=== PATIENT | male | born 1955 | race Caucasian/White ===

== ENCOUNTER 2018-11-13 08:34 | Day surgery (SDC) | payer OTHER, SELFPAY ==
--- NOTE | 2018-11-12 18:09 | W.PIPPEYE ---
History of Present Illness Chief Complaint: Progressive decreased vision, left eye Narrative: The patient is a 63-year old male with history of progressive decreased vision no both eyes at both distance and near. He is particularly difficult when driving and reading. On examination he was noted to have significant brunescent cataracts OU with visual acuity of 20/50 OD and 20/80 OS. The option of cataract surgery was offered to the patient and he felt he was symptomatic enough that he wished to proceed. NOTE: The Chief Complaint, HPI, Past Medical History, Past Surgical History, Family History, Social History, Medications, and complete Ophthalmic Exam with detailed Assessment and Plan have already been documented in the patient's outpatient ophthalmic record and are not covered again in detail here. [facility] Medical History Nuclear sclerotic cataract of left eye (Acute) Social History Smoking and Tabacco status: Current every day Meds Home Medications Medication Instructions Recorded Confirmed Type acetaminophen [Tylenol Extra 1,000 mg PO DAILY 11/08/18 11/08/18 History Strength] apixaban [Eliquis] 5 mg PO BID 11/08/18 11/08/18 History calcium carbonate [Calcium 500] 1,000 mg PO DAILY 11/08/18 11/08/18 History calcium crb,jei-H4-[id number]-genis 1 tab PO DAILY 11/08/18 11/08/18 History [Citracal + Bone Density] cholecalciferol (vitamin D3) 1,000 unit PO DAILY 11/08/18 11/08/18 History [Vitamin D3] digoxin [Digox] 0.25 mg PO DAILY 11/08/18 11/08/18 History diltiazem HCl [Cartia XT] 120 mg PO DAILY 11/08/18 11/08/18 History folic acid 1 mg PO DAILY 11/08/18 11/08/18 History loperamide 2 mg PO Q1-4H PRN 11/08/18 11/08/18 History metoprolol succinate 100 mg PO DAILY 11/08/18 11/08/18 History qerfiiiw-fka-xdkjj-vit K-lycop 1 ea PO DAILY 11/08/18 11/08/18 History [Men's Multivitamin] sertraline 1 tab PO DAILY 11/08/18 11/08/18 History thiamine HCl (vitamin B1) 100 mg PO DAILY 11/08/18 11/08/18 History Allergies Allergy/AdvReac Type Severity Reaction Status Date / Time No Known Allergies Allergy Unverified 11/08/18 13:02 Exam OCULAR EXAM:: Most recent ocular examination is significant for corrected visual acuity of 20/50 OD, 20/80 OS. Extraocular motility is normal. Pupils equal, round, and reactive without afferent pupillary defect slit-lamp examination is significant for pupils dilating to 7 mm OU. 3+ brunescent nuclear cataracts OU. Dilated funduscopic examination shows disc cupping of 0.6 OD 0.4 OS with normal vessels, macula, peripheral retina and vitreous. BRIGHTNESS ACUITY TESTING (BAT):: Brightness acuity testing of the left eye off is 20/60. Low is 20/60. Medium is 20/80. High is 20/100. Assessment and Plan (1) Nuclear sclerotic cataract of left eye: Current visit: No Status: Acute Assessment: Visually significant cataract, left eye. Plan: Cataract extraction with intraocular lens implantation, left eye Note: NOTE:: The details of the planned surgery, including the risks, indications,limitations,expectations,outcome and possible complications were explained to the patient. The patient understands the complications including, but not limited to: infection, hemorrhage, posterior dislocation of the lens or nuclear fragments which may require the intervention of a vitreoretinal surgeon, possible loss of the eye, or from anesthetic complications. The patient has been made aware of the option of not having surgery, that vision following surgery may not be equal to that prior to surgery, and that the planned surgery may not achieve the intended results. Following this discussion, which the patient appeared to understand, the patient wishes to proceed with cataract surgery with lens implantation of the affected eye to improve and maximize vision.
--- NOTE | 2018-11-12 18:20 | PDOC.DSDIS_ITS ---
Discharge Plan Discharge Details Attending Provider: Ata Munoz Primary Care Provider: Mohit Acosta [place] Meds and New Rx's Prescriptions: No Action loperamide 2 mg Capsule 2 mg PO Q1-4H PRNRF: 0 digoxin [Digox] 250 mcg Tablet 0.25 mg PO DAILY RF: 0 calcium carbonate [Calcium 500] 500 mg calcium (1,250 mg) Tablet 1,000 mg PO DAILY RF: 0 diltiazem HCl [Cartia XT] 120 mg Capsule,Extended Release 24hr 120 mg PO DAILY RF: 0 folic acid 1 mg Tablet 1 mg PO DAILY RF: 0 Citracal + Bone Density 300-200-13.5 mg-unit-mg Tablet 1 tab PO DAILY RF: 0 Eliquis 5 mg Tablet 5 mg PO BID RF: 0 metoprolol succinate 100 mg Cap,Sprinkle,Er 24hr Dose Pack 100 mg PO DAILY RF: 0 sertraline 100 mg Tablet 1 tab PO DAILY RF: 0 thiamine HCl (vitamin B1) 100 mg Tablet 100 mg PO DAILY RF: 0 acetaminophen [Tylenol Extra Strength] 500 mg Tablet 1,000 mg PO DAILY RF: 0 cholecalciferol (vitamin D3) [Vitamin D3] 1,000 unit Tablet 1,000 unit PO DAILY RF: 0 Men's Multivitamin 400-20-300 mcg Tablet 1 ea PO DAILY RF: 0 Discharge Instructions Stand Alone Forms: Post-op Topical Cataract, Mirta Payne (DSU) DS: Diagnosis Discharge Diagnosis (1) Status post cataract extraction and insertion of intraocular lens of left eye: Status: Chronic
--- NOTE | 2018-11-12 18:20 | W.PM.OP ---
Date of service: 11/13/18 Operative Note PRE-OP DIAGNOSIS: Cataract, left eye POST-OP DIAGNOSIS: same PROCEDURE: Cataract extraction using phacoemulsification with intraocular lens implant, left eye SURGEON: Ata Munoz ANESTHESIA: MAC and local (sub-tenon's anesthetic infiltration) PATHOLOGY: none sent COMPLICATIONS: None Patient was transported to: same day Patient's condition: stable Implants: Nelson and Nelson Vision / [employer] Tecnis [id number] Indications: Progressive decreased vision due to cataract, left eye Procedure Description: CATARACT SURGERY OPERATIVE REPORT PREOPERATIVE DIAGNOSIS: [] POSTOPERATIVE DIAGNOSIS: Same OPERATION: Cataract extraction using phacoemulsification with posterior chamber intraocular lens implant, left eye. IOL: IOL Edge Blacker/Model: J&J Vision / AVRIL Tecnis [id number] IOL Power: +[] diopters IOL Serial Number: [] Optic Diameter: 6.0mm Haptic/Overall Diameter: 13.0mm PHACO INFO: Perez [employer]urion Vision System with OZil and Active Fluidics Cumulative Dispersed Energy (CDE): [] seconds SURGEON: Ata Munoz MD, SOLO ANESTHESIA: Monitored Anesthesia Care (MAC), with local sub-tenon's anesthetic infiltration COMPLICATIONS: None SPECIMENS: None INDICATIONS FOR PROCEDURE: [] PROCEDURE: The correct surgical eye was identified and marked as the left eye and the pupil was dilated in the preoperative area using mydriatics and cycloplegics. The dilated pupil size was [] mm. Oral sedation was administered in the form of an Imprimis MKO Melt (midazolam 3mg/ketamine 25mg/ondansetron 2mg). The patient was brought to the operating room where cardiopulmonary monitoring was instituted and surgical time-out was performed, confirming the correct operative eye and IOL power. Topical anesthesia was administered and ophthalmic povidone-iodine 5% was instilled into the conjunctival fornices. Lidocaine gel was applied to the cornea and the sulema-ocular area was prepped with Betadine 10% solution and draped in the usual sterile fashion for intraocular surgery, including an aperture drape. A Tegaderm transparent film dressing was cut in half and used to cover the lashes and lid margins. Care was taken to sequester the lashes and lid margins under the Tegaderm dressing. A lid speculum was placed between the lids of the operative eye and the [employer] operating microscope was maneuvered into position. Reyes scissors were then used to make a conjunctival buttonhole approximately 6mm posterior to the limbus in the inferonasal quadrant. Blunt dissection was carried out to expose bare sclera, and a blunt-tipped sub-tenon?s anesthesia cannula was introduced and passed posteriorly along the globe where non-preserved plain lidocaine was injected into posterior sub-Tenon?s space. A sideport knife was used to make a paracentesis port superior/superiortemporal, and the anterior chamber was filled with Healon GV. A 2.4mm keratome knife was used to create a half-thickness groove at the limbus and then to construct a three-plane near-clear corneal tunnel extending 2.0mm into clear cornea in the temporal position. . A flap was raised on the anterior capsule and capsulorhexis forceps were used to complete a continuous curvilinear capsulorhexis of []mm. Balanced salt solution was then used to perform cortical cleaving hydrodissection and nuclear hydrodelineation until the lens could be freely rotated within the capsular bag. The lens nucleus was then disassembled and removed within the capsular bag and iris plane using phacoemulsification. Residual cortical material was removed using the 45-degree angled silicone I/A tip with 0.3mm port. The posterior capsule was carefully polished to remove as much residual lens epithelial cells as safely possible. The capsular bag was then inflated and the anterior chamber deepened with viscoelastic. The lens implant described above was inserted into the capsular bag using the AVRIL [place] Injector. A Kuglen hook was used to dial the IOL into position. Residual viscoelastic was then removed first from posterior to the IOL, then from the anterior chamber using the I/A handpiece. The lens implant was noted to center nicely within the capsular bag. The incisions were stromally hydrated, and the anterior chamber was reformed using BSS. Then 0.4cc of moxifloxacin 1.5mg/ml were injected into the capsular bag and anterior chamber. The incisions were checked with a Weck spear and found to be secure. Several drops of ophthalmic povidone-iodine 5% were then applied to the eye followed by two drops of Imprimis combination moxifloxacin/dexamethasone solution. The drapes were removed and a clear plastic protective eye shield was placed over the eye. The patient was then returned to Same Day Surgery in stable condition.
[2018-11-13 08:50] VITALS: BP 144/90; PULSE 78; RESP 16; TEMP 35.5; O2SAT 94
[2018-11-13] MEDS: Tropicam./Phenyleph. (1/2.5%) 5 ML BTL OS ×3 (09:12→09:20)
[2018-11-13] MEDS: Tetracaine 0.5% 4 ML BTL OS ×4 (09:12→11:11)
[2018-11-13] MEDS: Balanced Salt Soln.-PLUS 500 ML BAG (11:12)
[2018-11-13] MEDS: Trypan Blue 0.06% 0.5 ML SYR (11:12)
[2018-11-13] MEDS: Povidone-Iodine Ophth 30 ML BTL ×2 (11:12→11:51)
[2018-11-13] MEDS: Lidocaine 2% Jelly 6 ML SYR (11:12)
[2018-11-13] MEDS: Lidocaine 1% Pres-Free 5 ML VIAL (11:12)
--- NOTE | 2018-11-13 12:01 | W.PM.OP ---
Date of service: 11/13/18 Time of Service: 12:01 Operative Note PRE-OP DIAGNOSIS: Cataract, left eye, with poor red reflex POST-OP DIAGNOSIS: same PROCEDURE: Cataract extraction using phacoemulsification with intraocular lens implant, left eye, using capsular staining with Vision Blue SURGEON: Ata Munoz ANESTHESIA: MAC (with local sub-tenon's anesthetic injection) COMPLICATIONS: None Patient was transported to: same day Patient's condition: stable Implants: Nelson and Nelson / [employer] Opt[employer] Tecnis [id number] Indications: Progressive decreased vision due to cataract, left eye, with poor red reflex Procedure Description: CATARACT SURGERY OPERATIVE REPORT PREOPERATIVE DIAGNOSIS: 1. Dense nuclear cataract, left eye 2. Poor red reflex secondary to #1 POSTOPERATIVE DIAGNOSIS: Same OPERATION: 1. Cataract extraction using phacoemulsification with posterior chamber intraocular lens implant, left eye. 2. Capsular staining with Vision Blue IOL: IOL Distribution [employer] Assistant/Model: Nelson & Nelson / AVRIL Tecnis [id number] IOL Power: + 17.50 diopters IOL Serial Number: [id number] Optic Diameter: 6.0 mm Haptic/Overall Diameter: 13.0 mm PHACO INFO: Perez [employer]urion Vision System with OZil and Active Fluidics Cumulative Dispersed Energy (CDE): 33.46 seconds SURGEON: Ata Munoz MD, SOLO ANESTHESIA: Monitored A [facility] Care (MAC), with local sub-tenon's anesthetic infiltration COMPLICATIONS: None SPECIMENS: None INDICATIONS FOR PROCEDURE: The patient is a 63-year old male with history of diminished visual acuity and both eyes secondary to dense bilateral nuclear cataract left eye greater than right. The option of cataract surgery was offered to the patient and he felt he was symptomatically asked that he wished to proceed. PROCEDURE: The correct surgical eye was identified and marked as the left eye and the pupil was dilated in the preoperative area using mydriatics and cycloplegics. The dilated pupil size was 7.0 mm. Oral sedation was administered in the form of an Imprimis MKO Melt (midazolam 3mg/ketamine 25mg/ondansetron 2mg). The patient was brought to the operating room where cardiopulmonary monitoring was instituted and surgical time-out was performed, confirming the correct operative eye and IOL power. Topical anesthesia was administered and ophthalmic povidone-iodine 5% was instilled into the conjunctival fornices. Lidocaine gel was applied to the cornea and the sulema-ocular area was prepped with Betadine 10% solution and draped in the usual sterile fashion for intraocular surgery, including an aperture drape. A Tegaderm transparent film dressing was cut in half and used to cover the lashes and lid margins. Care was taken to sequester the lashes and lid margins under the Tegaderm dressing. A lid speculum was placed between the lids of the operative eye and the Syk-Regina operating microscope was maneuvered into position. The red reflex was noted to be extremely poor/absent. Some corneal haze was noted as well. Reyes scissors were then used to make a conjunctival buttonhole approximately 6mm posterior to the limbus in the inferonasal quadrant. Blunt dissection was carried out to expose bare sclera, and a blunt-tipped sub-tenon?s anesthesia cannula was introduced and passed posteriorly along the globe where non-preserved plain lidocaine was injected into posterior sub-Tenon?s space. A sideport knife was used to make a paracentesis port at the 12:00 position. Air was injected into the anterior chamber, followed by Vision Blue, which was painted over the anterior capsule and then irrigated out using BSS. The anterior chamber was filled with Healon GV. A 2.4mm keratome knife was used to create a half-thickness groove at the limbus and then to construct a three-plane near-clear corneal tunnel extending 2.0mm into clear cornea at the 3:00 position. A flap was raised on the anterior capsule and capsulorhexis forceps were used to complete a continuous curvilinear capsulorhexis of 5.0 mm. Balanced salt solution was then used to perform cortical cleaving hydrodissection and nuclear hydrodelineation until the lens could be freely rotated within the capsular bag. The lens nucleus was then disassembled and removed within the capsular bag and iris plane using phacoemulsification. Residual cortical material was removed using the Perez transformer irrigation and aspiration instrument.. The posterior capsule was carefully polished to remove as much residual lens epithelial cells as safely possible. The capsular bag was then inflated and the anterior chamber deepened with viscoelastic. The lens implant described above was inserted into the capsular bag using the AVRIL [place] Injector. A Kuglen hook was used to dial the IOL into position. Residual viscoelastic was then removed first from posterior to the IOL, then from the anterior chamber using the I/A handpiece. The lens implant was noted to center nicely within the capsular bag. The incisions were stromally hydrated, and the anterior chamber was reformed using BSS. Then 0.4cc of moxifloxacin 1.5mg/ml were injected into the capsular bag and anterior chamber. The incisions were checked with a Weck spear and found to be secure. Several drops of ophthalmic povidone-iodine 5% were then applied to the eye followed by two drops of Imprimis combination moxifloxacin/dexamethasone solution. The drapes were removed and a clear plastic protective eye shield was placed over the eye. The patient was then returned to Same Day Surgery in stable condition.
[2018-11-13 12:19] VITALS: BP 117/76; PULSE 64; RESP 16; TEMP 35.8; O2SAT 98
== END 2018-11-13 12:33 | disposition home or self-care (01) ==
LOC: SUR 08:36
PROVIDERS: PCP Neuromusculoskeletal Medicine & OMM; Visit Provider Ophthalmology
PROC: (CPT 66982; principal; 2018-11-13 11:30)
DX: H25.12 Age-related nuclear cataract, left eye (principal); K21.9 Gastro-esophageal reflux disease without esophagitis; F17.210 Nicotine dependence, cigarettes, uncomplicated
CPT/HCPCS: 66982; V2632

== ENCOUNTER 2018-11-27 08:17 | Day surgery (SDC) | payer OTHER, SELFPAY ==
--- NOTE | 2018-11-26 16:53 | POEE_ITS ---
History of Present Illness Chief Complaint: Progressive decreased vision, right eye Narrative: The patient is a 63-year-old male with history of progressive decreased vision in both eyes. He was noted to have significant bilateral nuclear cataracts. Cataract surgery in the left eye on 11/13/2018 and postoperatively has regained best corrected vision of 20/25 in the left eye. He now presents for cataract surgery in the right eye where best corrected vision measures 20/50. NOTE: The Chief Complaint, HPI, Past Medical History, Past Surgical History, Family History, Social History, Medications, and complete Ophthalmic Exam with detailed Assessment and Plan [facility] and are not covered again in detail here. [facility] Medical History Nuclear sclerotic cataract of right eye (Acute) Nuclear sclerotic cataract of left eye (Resolved) Surgical History Status post cataract extraction and insertion of intraocular lens of left eye (Chronic 11/13/18) Social History Smoking and Tabacco status: Current every day Meds Home Medications Medication Instructions Recorded Confirmed Type acetaminophen [Tylenol Extra 1,000 mg PO DAILY 11/08/18 11/13/18 History Strength] apixaban [Eliquis] 5 mg PO BID 11/08/18 11/13/18 History calcium carbonate [Calcium 500] 1,000 mg PO DAILY 11/08/18 11/13/18 History calcium crb,jfa-N0-iyo66-genis 1 tab PO DAILY 11/08/18 11/13/18 History [Citracal + Bone Density] cholecalciferol (vitamin D3) 1,000 unit PO DAILY 11/08/18 11/13/18 History [Vitamin D3] digoxin [Digox] 0.25 mg PO DAILY 11/08/18 11/13/18 History diltiazem HCl [Cartia XT] 120 mg PO DAILY 11/08/18 11/13/18 History folic acid 1 mg PO DAILY 11/08/18 11/13/18 History loperamide 2 mg PO Q1-4H PRN 11/08/18 11/13/18 History metoprolol succinate 100 mg PO DAILY 11/08/18 11/13/18 History wdoblaxf-qph-bekok-vit K-lycop 1 ea PO DAILY 11/08/18 11/13/18 History [Men's Multivitamin] sertraline 1 tab PO DAILY 11/08/18 11/13/18 History thiamine HCl (vitamin B1) 100 mg PO DAILY 11/08/18 11/13/18 History Allergies Allergy/AdvReac Type Severity Reaction Status Date / Time No Known Allergies Allergy Unverified 11/13/18 08:42 Exam OCULAR EXAM:: Most recent ocular examination is significant for best corrected vision of 20/50 OD, 20/25 OS. Extraocular motility is normal. Pupils equal, round, and reactive without afferent pupillary defect slit-lamp examination is significant for pupils dilating to 7 mm OU. 3+ brunescent nuclear cataracts OU. Well-positioned PCIOL OS with some mild central Descemet's folds in the cornea. Dilated funduscopic examination shows disc cupping of 0.6 OD 0.4 OS with good color. The optic nerves have good perfusion and normal color. The retinal vasculature is normal without significant tortuosity or abnormality. The maculas are normal in appearance with normal contour and foveal reflex appropriate for age. The peripheral retina and vitreous are normal. BRIGHTNESS ACUITY TESTING (BAT):: Brightness acuity testing of the right eye off is 20/50. Low is 20/60. Medium is 20/50. High is 20/60. Assessment and Plan (1) Nuclear sclerotic cataract of right eye: Current visit: No Status: Acute Assessment: Visually significant cataract, right eye. Plan: Cataract extraction with intraocular lens implantation, right eye Note: NOTE:: The details of the planned surgery, including the risks, indications,limitations,expectations,outcome and possible complications were explained to the patient. The patient understands the complications including, but not limited to: infection, hemorrhage, posterior dislocation of the lens or nuclear fragments which may require the intervention of a vitreoretinal surgeon, possible loss of the eye, or from anesthetic complications. The patient has been made aware of the option of not having surgery, that vision following surgery may not be equal to that prior to surgery, and that the planned surgery may not achieve the intended results. Following this discussion, which the patient appeared to understand, the patient wishes to proceed with cataract surgery with lens implantation of the affected eye to improve and maximize vision.
--- NOTE | 2018-11-26 17:25 | W.PM.DSUDISC ---
Discharge Plan Discharge Details Attending Provider: Ata Munoz Primary Care Provider: Mohit Acosta [place] Meds and New Rx's Prescriptions: No Action loperamide 2 mg Capsule 2 mg PO Q1-4H PRNRF: 0 digoxin [Digox] 250 mcg Tablet 0.25 mg PO DAILY RF: 0 calcium carbonate [Calcium 500] 500 mg calcium (1,250 mg) Tablet 1,000 mg PO DAILY RF: 0 diltiazem HCl [Cartia XT] 120 mg Capsule,Extended Release 24hr 120 mg PO DAILY RF: 0 folic acid 1 mg Tablet 1 mg PO DAILY RF: 0 Citracal + Bone Density 300-200-13.5 mg-unit-mg Tablet 1 tab PO DAILY RF: 0 Eliquis 5 mg Tablet 5 mg PO BID RF: 0 metoprolol succinate 100 mg Cap,Sprinkle,Er 24hr Dose Pack 100 mg PO DAILY RF: 0 sertraline 100 mg Tablet 1 tab PO DAILY RF: 0 thiamine HCl (vitamin B1) 100 mg Tablet 100 mg PO DAILY RF: 0 acetaminophen [Tylenol Extra Strength] 500 mg Tablet 1,000 mg PO DAILY RF: 0 cholecalciferol (vitamin D3) [Vitamin D3] 1,000 unit Tablet 1,000 unit PO DAILY RF: 0 Men's Multivitamin 400-20-300 mcg Tablet 1 ea PO DAILY RF: 0 Discharge Instructions Stand Alone Forms: Post-op Topical CataractMirta (DSU) DS: Diagnosis Discharge Diagnosis (1) Status post cataract extraction and insertion of intraocular lens of right eye: Status: Chronic
--- NOTE | 2018-11-26 17:27 | ROE_ITS ---
Date of service: 11/27/18 Time of Service: 10:36 Operative Note PRE-OP DIAGNOSIS: Cataract, right eye, with poor red reflex PROCEDURE: Cataract extraction using phacoemulsification with intraocular lens implantation, right eye, using capsular staining with Vision Blue SURGEON: Ata Munoz ANESTHESIA: MAC (with local sub-tenon's anesthetic injection) PATHOLOGY: none sent COMPLICATIONS: None Patient was transported to: same day Patient's condition: stable Implants: [employer] Tecnis [id number] Indications: Progressive visual loss due to cataract, right eye Procedure Description: CATARACT SURGERY OPERATIVE REPORT PREOPERATIVE DIAGNOSIS: 1. Dense nuclear cataract, right eye 2. Poor red reflex secondary to #1 POSTOPERATIVE DIAGNOSIS: Same OPERATION: 1. Cataract extraction using phacoemulsification with posterior chamber intraocular lens implant, right eye. 2. Capsular staining with Vision Blue IOL: IOL Director Banking/Model: [employer] / AVRIL Tecnis [id number] IOL Power: + 18.0 diopters IOL Serial Number: [id number] Optic Diameter: 6.0mm Haptic/Overall Diameter: 13.0mm PHACO INFO: Perez ABT [employer]urion Vision System with OZil and Active [employer]uidics Cumulative Dispersed Energy (CDE): 18.17 seconds SURGEON: Ata Munoz MD, SOLO ANESTHESIA: Monitored Anesthesia Care (MAC), with local sub-tenon's anesthetic infiltration COMPLICATIONS: None SPECIMENS: None INDICATIONS FOR PROCEDURE: The patient is a 63-year-old gentleman with history of dense bilateral nuclear cataracts who has become increasingly symptomatic. He is Ardie undergone cataract surgery in his left eye on 11/13/2018. He now presents for cataract surgery of the right eye. PROCEDURE: The correct surgical eye was identified and marked as the right eye and the pupil was dilated in the preoperative area using mydriatics and cycloplegics. The dilated pupil size was 7.0 mm. Oral sedation was administered in the form of an Imprimis MKO Melt (midazolam 3mg/ketamine 25mg/ondansetron 2mg). The patient was brought to the operating room where cardiopulmonary monitoring was instituted and surgical time-out was performed, confirming the correct operative eye and IOL power. Topical anesthesia was administered and ophthalmic povidone-iodine 5% was instilled into the conjunctival fornices. Lidocaine gel was applied to the cornea and the sulema-ocular area was prepped with Betadine 10% solution and draped in the usual sterile fashion for intraocular surgery, including an aperture drape. A Tegaderm transparent film dressing was cut in half and used to cover the lashes and lid margins. Care was taken to sequester the lashes and lid margins under the Tegaderm dressing. A lid speculum was placed between the lids of the operative eye and the [employer] operating microscope was maneuvered into position. Reyes scissors were then used to make a conjunctival buttonhole approximately 6mm posterior to the limbus in the inferonasal quadrant. Blunt dissection was carried out to expose bare sclera, and a blunt-tipped sub-tenon?s anesthesia cannula was introduced and passed posteriorly along the globe where non- preserved plain lidocaine was injected into posterior sub-Tenon?s space. A sideport knife was used to make a paracentesis port at the 7:00 position. Air was injected into the anterior chamber, followed by Vision Blue, which was painted over the anterior capsule and then irrigated out with BSS. The anterior chamber was filled with Viscoat. A 2.4mm keratome knife was used to create a half-thickness groove at the limbus and then to construct a three-plane near- clear corneal tunnel extending 2.0mm into clear cornea at the 10:00 position. A flap was raised on the anterior capsule and capsulorhexis forceps were used to complete a continuous curvilinear capsulorhexis of 5.8 mm. The anterior chamber was noted to be quite deep. Balanced salt solution was then used to perform cortical cleaving hydrodissection and nuclear hydrodelineation until the lens could be freely rotated within the capsular bag. The lens nucleus was then disassembled and removed within the capsular bag and iris plane using phacoemulsification. Residual cortical material was removed using the I/A handpiece. The posterior capsule was carefully polished to remove as much residual lens epithelial cells as safely possible. The capsular bag was then inflated and the anterior chamber deepened with Provisc. The lens implant described above was inserted into the capsular bag using the AVRIL [place] Injector. A Kuglen hook was used to dial the IOL into position. Residual viscoelastic was then removed first from posterior to the IOL, then from the anterior chamber using the I/A handpiece. The lens implant was noted to center nicely within the capsular bag. The incisions were stromally hydrated, and the anterior chamber was reformed using BSS. Then 0.4cc of moxifloxacin 1.5mg/ml were injected into the capsular bag and anterior chamber. The incisions were checked with a Weck spear and found to be secure. Several drops of ophthalmic povidone-iodine 5% were then applied to the eye followed by two drops of Imprimis combination moxifloxacin/dexamethasone solution. The drapes were removed and a clear plastic protective eye shield was placed over the eye. The patient was then returned to [facility] in stable condition.
[2018-11-27 08:37] VITALS: BP 133/74; PULSE 63; RESP 16; TEMP 36.3; O2SAT 99
[2018-11-27] MEDS: Tetracaine 0.5% 4 ML BTL OD ×3 (08:50→09:58)
[2018-11-27] MEDS: Tropicam./Phenyleph. (1/2.5%) 5 ML BTL OD ×2 (08:50→08:59)
[2018-11-27] MEDS: Lidocaine 2% Jelly 6 ML SYR (09:58)
[2018-11-27] MEDS: Lidocaine 1% Pres-Free 5 ML VIAL (10:04)
[2018-11-27] MEDS: Duovisc Viscoelastic System EACH 1 EACH (10:04)
[2018-11-27] MEDS: Balanced Salt Soln.-PLUS 500 ML BAG (10:04)
[2018-11-27] MEDS: Povidone-Iodine Ophth 30 ML BTL (10:05)
[2018-11-27] MEDS: Trypan Blue 0.06% 0.5 ML SYR (10:05)
[2018-11-27 10:55] VITALS: BP 114/68; PULSE 64; RESP 16; TEMP 36.4; O2SAT 96
== END 2018-11-27 11:02 | disposition home or self-care (01) ==
LOC: SUR 08:18
PROVIDERS: PCP Neuromusculoskeletal Medicine & OMM; Visit Provider Ophthalmology
PROC: (CPT 66982; principal; 2018-11-27 10:30)
DX: H25.11 Age-related nuclear cataract, right eye (principal); H35.89 Other specified retinal disorders; Z98.42 Cataract extraction status, left eye; Z96.1 Presence of intraocular lens
CPT/HCPCS: 66982; V2632